=== PATIENT | male | born 1970 | race Caucasian/White ===

== ENCOUNTER 2017-11-24 10:50 | Emergency (ER) | payer SELFPAY ==
[2017-11-24 10:54] VITALS: BP 164/78; PULSE 82; RESP 20; TEMP 98.2; O2SAT 95
[2017-11-24] MEDS ORDERED: RESP: ALBUTEROL 2.5 MG/IPRATROPIUM 0.5 MG NEB (SCH) NEB ONE (11:45)
[2017-11-24] MEDS ORDERED: predniSONE 20 MG TAB PO ONE (11:45)
--- NOTE | 2017-11-24 12:05 | RADRPT ---
EXAM DATE/TIME: 11/24/2017 11:51 [place] COMPARISON: No previous studies available for comparison. INDICATIONS : Cough. MEDICAL HISTORY : None. SURGICAL HISTORY : None. ENCOUNTER: Initial ACUITY: 1 week PAIN SCORE: 2/10 LOCATION: Bilateral chest FINDINGS: Lungs are markedly hyperinflated. There is no evidence of acute air space disease, mass densities or effusions. Heart and mediastinal structures are unremarkable. Osseous structures are intact. CONCLUSION: Advanced COPD No evidence of acute process. Edgar Arellano MD on November 24, 2017 at 12:00 Board Certified Radiologist. This report was verified electronically.
[2017-11-24] MEDS ORDERED: VENTAER INH (12:36)
[2017-11-24] MEDS ORDERED: MEDR4PAK PO (12:36)
[2017-11-24] MEDS ORDERED: AMOX500T PO (12:36)
--- NOTE | 2017-11-24 12:36 | PD ---
HPI Chief Complaint: Respiratory Symptoms Time Seen by Provider: 11:30 Travel History International Travel<30 days: No Contact w/Intl Traveler<30days: No Traveled to known affect area: No History of Present Illness HPI This 47-year-old male is complaining of cough. He has been coughing for several days. Is not bringing anything up. There has not been any hemoptysis. He does feel short of breath at times. He smokes 2 packs of cigarettes a day. He has not been losing weight. [facility] Past Medical History Medical History: Denies Significant Hx Tetanus Vaccination: > 5 Years Influenza Vaccination: No Past Surgical History Surgical History: No Previous Surgery Social History Alcohol Use: Yes (12 PK DAILY) Tobacco Use: Yes (2 PPD) Substance Use: No Allergies-Medications (Allergen,Severity, Reaction): Coded Allergies: No Known Drug Allergies (Verified Allergy, Unknown, 11/24/17) Reported Meds & Prescriptions Reported Meds & Active Scripts Active No Active Prescriptions or Reported Medications Review of Systems General / Constitutional: No: Fever, Chills Eyes: No: Diploplia, Blurred Vision HENT: No: Headaches, Vertigo Cardiovascular: No: Chest Pain or Discomfort Respiratory: Positive: Cough, Shortness of Breath Gastrointestinal: No: Nausea, Vomiting Genitourinary: No: Urgency, Frequency Skin: No Rash Neurologic: No: Weakness, Dizziness Physical Exam Narrative GENERAL: Male SKIN: Focused skin assessment warm/dry. HEAD: Atraumatic. Normocephalic. EYES: Pupils equal and round. No scleral icterus. No injection or drainage. ENT: No nasal bleeding or discharge. Mucous membranes pink and moist. NECK: Trachea midline. No JVD. CARDIOVASCULAR: Regular rate and rhythm. No murmur appreciated. RESPIRATORY: There are diminished breath sounds bilaterally. There is occasional rhonchi GASTROINTESTINAL: Abdomen soft, non-tender, nondistended. Hepatic and splenic margins not palpable. MUSCULOSKELETAL: No obvious deformities. No clubbing. No cyanosis. No edema. NEUROLOGICAL: Awake and alert. No obvious cranial nerve deficits. Motor grossly within normal limits. Normal speech. PSYCHIATRIC: Appropriate mood and affect; insight and judgment normal. Data Data Last Documented VS Vital Signs Date Time Temp Pulse Resp B/P (MAP) Pulse Ox O2 Delivery O2 Flow Rate FiO2 11/24/17 11:14 82 18 97 Room Air 11/24/17 10:54 98.2 164/78 (106) Orders Orders Electrocardiogram (11/24/17 10:58) Chest, Pa & Lat (11/24/17 11:34) Albuterol-Ipratropium Neb (Duoneb Neb) (11/24/17 11:45) Prednisone (Deltasone) (11/24/17 11:45) MDM Medical Decision Making Medical Screen Exam Complete: Yes Emergency Medical Condition: Yes Medical Record Reviewed: Yes Differential Diagnosis Differential includes COPD, acute bronchitis, pneumonia Narrative Course Chest x-ray shows changes consistent with advanced COPD. He did get some relief with a nebulizer treatment. He will be released with prescription for amoxicillin, Medrol Dosepak and albuterol. The importance that he stop smoking has been stressed to the patient Diagnosis Primary Impression: Acute bronchitis Additional Impression: COPD (chronic obstructive pulmonary disease) Scripts Albuterol 18 GM Inh (Ventolin Hfa 18 GM Inh) 90 Mcg/Act Aer 2 PUFF INH Q4H Y for SHORTNESS OF BREATH, #1 INHALER 0 Refills Prov: Frank Holliday MD 11/24/17 Methylprednisolone Dosepak (Medrol Dosepak) 4 Mg Dspk 4 MG PO DIRECTED, #1 DSPK 0 Refills Per Pharmacist direction Prov: Frank Holliday MD 11/24/17 Amoxicillin (Amoxicillin) 500 Mg Tab 500 MG PO TID for Infection for 7 Days, TAB 0 Refills Prov: Frank Holliday MD 11/24/17 Disposition: 01 DISCHARGE HOME Condition: Stable Frank Holliday MD November 24, 2017 12:36
[2017-11-24 13:05] VITALS: BP 114/73
--- NOTE | 2017-11-24 18:03 | EKG ---
Date Performed: 11/24/2017 Time Performed: 11:07:46 PTAGE: 47 years EKG: Sinus rhythm WITH SINUS ARRHYTHMIA NORMAL ECG NO PREVIOUS TRACING DOCTOR: Miguelina Gardner Interpretating Date/Time 11/24/2017 18:00:39
== END 2017-11-24 13:06 | disposition home or self-care (01) ==
LOC: PHED 10:50
DX: J20.9 Acute bronchitis, unspecified (principal); J44.0 Chronic obstructive pulmonary disease with (acute) lower respiratory infection; F17.210 Nicotine dependence, cigarettes, uncomplicated
CPT/HCPCS: 71046; 93005; 94664; 99284; J7512